=== PATIENT | male | born 1990 | race Caucasian/White ===

== ENCOUNTER 2023-04-17 21:31 | Emergency (ER) | payer OTHER ==
[2023-04-17 21:49] VITALS: BP 152/101
[2023-04-17 23:28] VITALS: PULSE 84
== END 2023-04-17 23:26 | disposition home or self-care (01) ==
LOC: MW.ED 21:31
DX: M25.561 Pain in right knee (principal)
CPT/HCPCS: 73562-26-RT; 73562-RT; 99283

== ENCOUNTER 2023-09-29 12:46 | Emergency (ER) | payer OTHER ==
[2023-09-29 14:03] LABS: CORONAVIRUS COVID-19 NAA NEGATIVE (NEGATIVE); INFLUENZA A NAA NEGATIVE (NEGATIVE); INFLUENZA B NAA NEGATIVE (NEGATIVE); RESPIRATORY SYNCYTIAL VIR NAA NEGATIVE (NEGATIVE)
[2023-09-29 14:39] VITALS: BP 124/75; PULSE 87
== END 2023-09-29 14:38 | disposition home or self-care (01) ==
LOC: MW.ED 12:46
DX: T78.40XA Allergy, unspecified, initial encounter (principal)
CPT/HCPCS: 0241U; 99283